=== PATIENT | male | born 1945 | race Hispanic/Latino ===

== ENCOUNTER 2018-08-29 22:16 | Emergency (ER) | payer OTHER ==
[2018-08-30 00:09] LABS: Absolute Monocytes 0.5 K/uL (0.1-1.3); Absolute Neutrophil 6.7 K/uL (1.8-8.0); Basophils % 0.8 % (0-1.3); Hematocrit 37.6 % (39.6-49.0); Lymphocytes % 11.4 % (15.3-44.8); MPV 8.5 fL (7.6-11.3); Monocytes % 5.8 % (3.3-12.3); RBC Red Blood Cell Count 3.78 M/uL (4.33-5.43)
[2018-08-30 00:21] LABS: Protime INR 0.95
[2018-08-30] MEDS ORDERED: FOLIC ACID 5 MG/ML VIAL ONE (00:48)
[2018-08-30] MEDS ORDERED: NA CHLORIDE 0.9% 50 ML IV ONE (00:49)
[2018-08-30 01:22] LABS: ALT/SGPT 27 U/L (12-78); AST/SGOT 14 U/L (15-37); Albumin 3.6 g/dL (3.4-5.0); Alkaline Phosphatase 87 U/L (45-117); BUN Blood Urea Nitrogen 21 mg/dL (7-18); Bicarbonate 23 mmol/L (21-32); Bilirubin Direct 0.1 mg/dL (0-0.2); Bilirubin Total 0.3 mg/dL (0.2-1.0); Glucose Level 171 mg/dL (74-106); Magnesium 1.6 mg/dL (1.8-2.4); NT PRO-BNP 34 pg/mL (<125); Potassium 4.2 mmol/L (3.5-5.1); Protein, Total 7.1 g/dL (6.4-8.2); Sodium Level 136 mmol/L (136-145); Troponin (Emerg Dept Use Only) < 0.02 ng/mL (0.0-0.045)
[2018-08-30 01:31] LABS: Urine Blood NEGATIVE (NEG); Urine Glucose TRACE (NEG); Urine Protein NEGATIVE (NEG); Urine pH 6.5 (5.0-7.0)
[2018-08-30] MEDS ORDERED: MAGNESIUM SULFATE 1 gm IVPB 1 GM/100 ML BAG IV ONE (01:59)
--- NOTE | 2018-08-30 04:21 | EDPHYS ---
Physician Documentation [facility] Name: Roel Tejeda Jr Age: 73 yrs Sex: Male : 1945 Arrival Date: 08/29/2018 Time: 22:32 Bed 13 Private MD: ED Physician Kyle Winters HPI: 08/30 01:59 This 73 yrs old Male presents to ER via EMS with complaints of Probable snw Seizure. 01:59 The patient presents after having a single isolated seizure, that lasted 2 minute(s). snw Character of seizure(s): Loss of consciousness: the patient experienced loss of consciousness, Motor activity: focal activity, of the right arm, Incontinence: incontinent of bladder, Apnea: the patient experienced apnea, Circulation: the patient did not experience evidence of pulse disturbance, Eye movements: are unknown. Seizure onset: at 22:00. Context: the seizure(s) was witnessed, by a significant other, , occurred at home, occurred while the patient was sitting, Contributing factors: recent severe fatigue, +diaphoresis, -postictal period. Seizure Hx: the patient has no previous seizure history. Associated injury: The patient did not suffer any apparent associated injury. EMS care: supplemental oxygen. Current symptoms: Currently, the patient is not experiencing any symptoms, the patient feels back to baseline, no confusion, no dysphasia, no headache, no paralysis, no visual changes. The patient has not experienced similar symptoms in the past. It is unknown whether or not the patient has recently seen a physician. [facility]. Historical: - Allergies: 08/29 22:20 No Known Allergies; cc3 - Home Meds: 22:20 glipizide 5 mg Oral tab 1 tab once daily [Active]; atorvastatin 40 mg oral tab 1 tab cc3 once daily [Active]; sildenafil oral 100 mg PRN oral [Active]; hydrochlorothiazide 25 mg Oral tab once daily [Active]; Benadryl 25 mg oral cap PRN [Active]; tamsulosin 0.4 mg oral cp24 1 cap once daily [Active]; sertraline 100 mg oral tab 1 tab once daily [Active]; cyanocobalamin (vitamin B-12) 100 mcg oral tab [Active]; omeprazole 20 mg Oral cpDR 1 cap once daily [Active]; metformin 1,000 mg Oral tab [Active]; lisinopril 10 mg Oral tab 1 tab once daily [Active]; tramadol 50 mg Oral tab BID [Active]; - PMHx: 22:20 Diabetes - NIDDM; quadruple heart bypass; right knee replacement; back surgery; cc3 bilateral cataract removal; Hypertension; CVA; Myocardial infarction; - Immunization history:: Adult Immunizations up to date. - Social history:: Smoking status: Patient uses tobacco products, denies chronic smoking, but will smoke occasionally. - Ebola Screening: : No symptoms or risks identified at this time. ROS: 08/30 01:58 Constitutional: Negative for fever, chills, and weight loss, Eyes: Negative for injury, snw pain, redness, and discharge, ENT: Negative for injury, pain, and discharge, Neck: Negative for injury, pain, and swelling, Cardiovascular: Negative for chest pain, palpitations, and edema, Respiratory: Negative for shortness of breath, cough, wheezing, and pleuritic chest pain, Abdomen/GI: Negative for abdominal pain, nausea, vomiting, diarrhea, and constipation, Back: Negative for injury and pain, : Negative for injury, bleeding, discharge, and swelling, MS/Extremity: Negative for injury and deformity, Skin: Negative for injury, rash, and discoloration, Psych: Negative for depression, anxiety, suicide ideation, homicidal ideation, and hallucinations. Neuro: Positive for seizure activity. Exam: 00:16 Constitutional: This is a well developed, well nourished patient who is awake, alert, snw and in no acute distress. Head/Face: Normocephalic, atraumatic. Eyes: Pupils equal round and reactive to light, extra-ocular motions intact. Lids and lashes normal. Conjunctiva and sclera are non-icteric and not injected. Cornea within normal limits. Periorbital areas with no swelling, redness, or edema. ENT: Nares patent. No nasal discharge, no septal abnormalities noted. Tympanic membranes are normal and external auditory canals are clear. Oropharynx with no redness, swelling, or masses, exudates, or evidence of obstruction, uvula midline. Mucous membranes moist. Neck: Trachea midline, no thyromegaly or masses palpated, and no cervical lymphadenopathy. Supple, full range of motion without nuchal rigidity, or vertebral point tenderness. No Meningismus. Chest/axilla: Normal chest wall appearance and motion. Nontender with no deformity. No lesions are appreciated. Cardiovascular: Regular rate and rhythm with a normal S1 and S2. No gallops, murmurs, or rubs. Normal PMI, no JVD. No pulse deficits. Respiratory: Lungs have equal breath sounds bilaterally, clear to auscultation and percussion. No rales, rhonchi or wheezes noted. No increased work of breathing, no retractions or nasal flaring. Abdomen/GI: Soft, non-tender, with normal bowel sounds. No distension or tympany. No guarding or rebound. No evidence of tenderness throughout. Back: No spinal tenderness. No costovertebral tenderness. Full range of motion. Skin: Warm, dry with normal turgor. Normal color with no rashes, no lesions, and no evidence of cellulitis. MS/ Extremity: Pulses equal, no cyanosis. Neurovascular intact. Full, normal range of motion. Neuro: Awake and alert, GCS 15, oriented to person, place, time, and situation. Cranial nerves II-XII grossly intact. Motor strength 5/5 in all extremities. Sensory grossly intact. Cerebellar exam normal. Normal gait. Psych: Awake, alert, with orientation to person, place and time. Behavior, mood, and affect are within normal limits. Vital Signs: 08/29 22:20 BP 122 / 79; Pulse 82; Resp 19 S; Temp 98.5(O); Pulse Ox 97% on R/A; Weight 105.69 kg cc3 (R); Height 6 ft. 0 in. (182.88 cm) (R); 23:00 BP 125 / 84; Pulse 84; Resp 17 S; Pulse Ox 98% on R/A; cc3 08/30 00:15 BP 123 / 81; Pulse 85; Resp 17 S; Pulse Ox 98% on R/A; cc3 01:20 BP 126 / 75; Pulse 70; Resp 18 S; Pulse Ox 98% on R/A; cc3 02:30 BP 124 / 84; Pulse 79; Resp 17 S; Pulse Ox 99% on R/A; cc3 02:45 BP 141 / 72; Pulse 77; Resp 16 S; Pulse Ox 98% on R/A; cc3 03:45 BP 133 / 76; Pulse 75; Resp 14 S; Pulse Ox 99% on R/A; cc3 04:30 BP 131 / 80; Pulse 74; Resp 16 S; Pulse Ox 98% on R/A; cc3 05:45 BP 140 / 81; Pulse 69; Resp 16 S; Pulse Ox 97% on R/A; cc3 06:06 BP 136 / 81; Pulse 77; Resp 18 S; Pulse Ox 98% on R/A; cc3 08/29 22:20 Body Mass Index 31.60 (105.69 kg, 182.88 cm) cc3 Keli Coma Score: 08/29 22:20 Eye Response: spontaneous(4). Verbal Response: oriented(5). Motor Response: obeys cc3 commands(6). Total: 15. MDM: 08/30 00:10 Data reviewed: vital signs, nurses notes. Data interpreted: Pulse oximetry: on room air snw is 97 %. Interpretation: normal. Counseling: I had a detailed discussion with the patient and/or guardian regarding: the historical points, exam findings, and any diagnostic results supporting the discharge/admit diagnosis, lab results, radiology results. ED course: sees the MA, Dr. Carroll is pt's [facility] at [facility]. 00:17 Patient medically screened. snw 03:56 Physician consultation: Kyle Winters MD. Transition of care: After a detail discussion snw of the patient's case, care is transferred to Kyle Winters MD. 08/29 23:20 Order name: Basic Metabolic Panel; Complete Time: 01:23 snw 08/29 23:20 Order name: CBC with Diff snw 08/29 23:20 Order name: LFT's; Complete Time: 01:23 snw 08/29 23:20 Order name: Magnesium; Complete Time: 01:23 snw 08/29 23:20 Order name: NT PRO-BNP; Complete Time: 01:23 snw 08/29 23:20 Order name: PT-INR; Complete Time: 00:36 snw 08/29 23:19 Order name: CT Head C Spine snw 08/29 23:20 Order name: Troponin (emerg Dept Use Only); Complete Time: 01:23 snw 08/29 23:20 Order name: XRAY Chest (1 view) snw 08/29 23:20 Order name: EKG; Complete Time: 23:21 snw 08/30 01:14 Order name: Urine Dipstick--Ancillary (enter results); Complete Time: 01:32 mw2 08/30 02:41 Order name: Glucose, Ancillary Testing; Complete Time: 02:51 EDMS 08/29 23:20 Order name: Cardiac monitoring; Complete Time: 23:42 snw 08/29 23:20 Order name: EKG - Nurse/Tech; Complete Time: 23:42 snw 08/29 23:20 Order name: IV Saline Lock; Complete Time: 23:41 snw 08/29 23:20 Order name: Labs collected and sent; Complete Time: 23:41 snw 08/29 23:20 Order name: O2 Per Protocol; Complete Time: 23:41 snw 08/29 23:20 Order name: O2 Sat Monitoring; Complete Time: 23:41 snw Administered Medications: 00:50 Drug: foLIC Acid 1 mg Route: IVPB; Site: right antecubital; cc3 01:20 Follow up: Response: No adverse reaction; IV Status: Completed infusion cc3 02:00 Drug: Magnesium Sulfate 1 grams Route: IVPB; Infused Over: 1 hrs; Site: right cc3 antecubital; 03:10 Follow up: Response: No adverse reaction; IV Status: Completed infusion; IV Intake: cc3 100ml Point of Care Testing: Blood Glucose: 08/29 22:37 Blood Glucose: 149 mg/dL; ed1 Ranges: Critical Glucose Levels:Adult <50 mg/dl or >400 mg/dl <40 mg/dl or >180 mg/dl Disposition: 08/30/18 04:20 Transfer ordered to [facility]. Diagnosis is Epilepsy and recurrent seizures. - Reason for transfer: Higher level of care. - Accepting physician is heather. - Condition is Stable. - Problem is new. - Symptoms have improved. Signatures: Dispatcher [employer] EDME Zully Gerard, RN RN dm5 Nevaeh Villasenor FNP-C FNP-Kyle Adrian MD MD gs Cordel, Charlene cc3 Corrections: (The following items were deleted from the chart) 08/30 09:08 04:20 08/30/2018 04:20 Transfer ordered to [facility]. dm5 Diagnosis is Epilepsy and recurrent seizures. Reason for transfer: Higher level of care. Accepting physician is heather. Condition is Stable. Problem is new. Symptoms have improved. gs
--- NOTE | 2018-08-30 04:21 | ER ---
Nurse's Notes [facility] Name: Roel Tejeda Jr Age: 73 yrs Sex: Male : 1945 Arrival Date: 08/29/2018 Time: 22:32 Bed 13 Private MD: Diagnosis: Epilepsy and recurrent seizures Presentation: 08/29 22:20 Presenting complaint: EMS states: "patient was feeling cold \\T\\ clammy tonight then had a cc3 2-minute seizure, when we arrive at the patient's house the patient is completely awake and alert". said that the patient has been having dizziness, nausea and feeling of tiredness since 10 days and today's worse; as per , after they had dinner tonight the patient just suddenly felt dizzy and for a minute and a half the patient had a blank stare, started seizing and stopped breathing, then after that the patient came back to his consciousness but cannot remember what happened. Transition of care: patient was not received from another setting of care. Onset of symptoms was August 29, 2018. Risk Assessment: Do you want to hurt yourself or someone else? Patient reports no desire to harm self or others. Initial Sepsis Screen: Does the patient meet any 2 criteria? No. Patient's initial sepsis screen is negative. Does the patient have a suspected source of infection? No. Patient's initial sepsis screen is negative. Care prior to arrival: None. 22:20 Method Of Arrival: EMS: [facility] cc3 22:20 Acuity: CANDY 2 cc3 Triage Assessment: 22:20 General: Appears in no apparent distress. comfortable. General: Behavior is calm, cc3 cooperative, appropriate for age. Pain: Denies pain. EENT: No signs and/or symptoms were reported regarding the EENT system. Neuro: Level of Consciousness is awake, alert, obeys commands, Oriented to person, place, time, situation, Appropriate for age. Cardiovascular: Patient's skin is warm and dry. Respiratory: Airway is patent Respiratory effort is even, unlabored, Respiratory pattern is regular, symmetrical. GI: Abdomen is round obese. : No signs and/or symptoms were reported regarding the genitourinary system. Derm: No signs and/or symptoms reported regarding the dermatologic system. Musculoskeletal: Circulation, motion, and sensation intact. Range of motion: intact in all extremities. Historical: - Allergies: 22:20 No Known Allergies; cc3 - Home Meds: 22:20 glipizide 5 mg Oral tab 1 tab once daily [Active]; atorvastatin 40 mg oral tab 1 tab cc3 once daily [Active]; sildenafil oral 100 mg PRN oral [Active]; hydrochlorothiazide 25 mg Oral tab once daily [Active]; Benadryl 25 mg oral cap PRN [Active]; tamsulosin 0.4 mg oral cp24 1 cap once daily [Active]; sertraline 100 mg oral tab 1 tab once daily [Active]; cyanocobalamin (vitamin B-12) 100 mcg oral tab [Active]; omeprazole 20 mg Oral cpDR 1 cap once daily [Active]; metformin 1,000 mg Oral tab [Active]; lisinopril 10 mg Oral tab 1 tab once daily [Active]; tramadol 50 mg Oral tab BID [Active]; - PMHx: 22:20 Diabetes - NIDDM; quadruple heart bypass; right knee replacement; back surgery; cc3 bilateral cataract removal; Hypertension; CVA; Myocardial infarction; - Immunization history:: Adult Immunizations up to date. - Social history:: Smoking status: Patient uses tobacco products, denies chronic smoking, but will smoke occasionally. - Ebola Screening: : No symptoms or risks identified at this time. Screenin:20 Abuse screen: Denies threats or abuse. Denies injuries from another. Nutritional cc3 screening: No deficits noted. Tuberculosis screening: No symptoms or risk factors identified. Fall Risk IV access (20 points). Ambulatory Aid- None/Bed Rest/Nurse Assist (0 pts). Gait- Normal/Bed Rest/Wheelchair (0 pts) Mental Status- Oriented to own ability (0 pts). Assessment: 22:20 General: see triage assessment. cc3 23:18 Reassessment: Patient appears in no apparent distress at this time. Patient and/or cc3 family updated on plan of care and expected duration. Pain level reassessed. Patient is alert, oriented x 3, equal unlabored respirations, skin warm/dry/pink. 08/30 00:25 Reassessment: Patient appears in no apparent distress at this time. Patient and/or cc3 family updated on plan of care and expected duration. Pain level reassessed. Patient is alert, oriented x 3, equal unlabored respirations, skin warm/dry/pink. Patient came back from CT scan department, awaiting result. 01:16 Reassessment: Patient appears in no apparent distress at this time. Patient and/or cc3 family updated on plan of care and expected duration. Pain level reassessed. Patient is alert, oriented x 3, equal unlabored respirations, skin warm/dry/pink. 02:25 Reassessment: Patient appears in no apparent distress at this time. Patient and/or cc3 family updated on plan of care and expected duration. Pain level reassessed. Patient is alert, oriented x 3, equal unlabored respirations, skin warm/dry/pink. 03:09 Reassessment: Patient appears in no apparent distress at this time. Patient and/or cc3 family updated on plan of care and expected duration. Pain level reassessed. Patient is alert, oriented x 3, equal unlabored respirations, skin warm/dry/pink. 04:30 Reassessment: Patient appears in no apparent distress at this time. Patient and/or cc3 family updated on plan of care and expected duration. Pain level reassessed. Patient is alert, oriented x 3, equal unlabored respirations, skin warm/dry/pink. Charge nurse Tiffany said the transfer for the patient will take a while due to lack of EMS, informed the patient's . Transfer form still not given to me. 05:35 Reassessment: Patient appears in no apparent distress at this time. Patient and/or cc3 family updated on plan of care and expected duration. Pain level reassessed. Patient is alert, oriented x 3, equal unlabored respirations, skin warm/dry/pink. Patient's named Nora went out and left her mobile number [phone]. 06:20 Reassessment: Patient appears in no apparent distress at this time. Patient and/or cc3 family updated on plan of care and expected duration. Pain level reassessed. Patient is alert, oriented x 3, equal unlabored respirations, skin warm/dry/pink. Vital Signs: 08/29 22:20 BP 122 / 79; Pulse 82; Resp 19 S; Temp 98.5(O); Pulse Ox 97% on R/A; Weight 105.69 kg cc3 (R); Height 6 ft. 0 in. (182.88 cm) (R); 23:00 BP 125 / 84; Pulse 84; Resp 17 S; Pulse Ox 98% on R/A; cc3 08/30 00:15 BP 123 / 81; Pulse 85; Resp 17 S; Pulse Ox 98% on R/A; cc3 01:20 BP 126 / 75; Pulse 70; Resp 18 S; Pulse Ox 98% on R/A; cc3 02:30 BP 124 / 84; Pulse 79; Resp 17 S; Pulse Ox 99% on R/A; cc3 02:45 BP 141 / 72; Pulse 77; Resp 16 S; Pulse Ox 98% on R/A; cc3 03:45 BP 133 / 76; Pulse 75; Resp 14 S; Pulse Ox 99% on R/A; cc3 04:30 BP 131 / 80; Pulse 74; Resp 16 S; Pulse Ox 98% on R/A; cc3 05:45 BP 140 / 81; Pulse 69; Resp 16 S; Pulse Ox 97% on R/A; cc3 06:06 BP 136 / 81; Pulse 77; Resp 18 S; Pulse Ox 98% on R/A; cc3 08/29 22:20 Body Mass Index 31.60 (105.69 kg, 182.88 cm) cc3 Keli Coma Score: 08/29 22:20 Eye Response: spontaneous(4). Verbal Response: oriented(5). Motor Response: obeys cc3 commands(6). Total: 15. ED Course: 22:20 Arm band placed on right wrist. Patient notified of wait time. cc3 22:20 Patient has correct armband on for positive identification. Placed in gown. Bed in low cc3 position. Call light in reach. Side rails up X2. Adult w/ patient. Seizure precautions initiated. monitor tech on. Pulse ox on. NIBP on. 22:32 Patient arrived in ED. am2 22:32 Lulu Reid is Primary Nurse. cc3 22:32 Maintain EMS IV. Dressing intact. Good blood return noted. Site clean \\T\\ dry. Gauge \\T\\ cc 3 site: gauge 20 right acv. 22:49 Triage completed. cc3 23:49 Nev[facility]C [facility]. snw 23:49 Kyle Winters MD is Attending Physician. snw 23:[address] via stretcher. kw1 03/18 00:03 CT completed. Patient tolerated procedure well. Patient moved back from CT. kw1 00:14 CT Head C Spine In Process Unspecified. EDMS 00:25 XRAY Chest (1 view) In Process Unspecified. EDMS 07:00 Report given to OTILIA Kelly. cc3 07:05 Robin Linares, RN is Primary Nurse. sg 07:40 transfer transportation to receiving facility. sg 07:41 Patient transferred, IV remains in place. intact, No redness/swelling at site. sg Administered Medications: 00:50 Drug: foLIC Acid 1 mg Route: IVPB; Site: right antecubital; cc3 01:20 Follow up: Response: No adverse reaction; IV Status: Completed infusion cc3 02:00 Drug: Magnesium Sulfate 1 grams Route: IVPB; Infused Over: 1 hrs; Site: right cc3 antecubital; 03:10 Follow up: Response: No adverse reaction; IV Status: Completed infusion; IV Intake: cc3 100ml Point of Care Testing: Blood Glucose: 08/29 22:37 Blood Glucose: 149 mg/dL; ed1 Ranges: Intake: 18 03:10 IV: 100ml; Total: 100ml. cc3 Outcome: 04:20 ER care complete, transfer ordered by MD. 07:40 Transferred by ground EMS Note: report called to OTILIA Brand sg 09:08 Patient left the ED. dm5 Signatures: Dispatcher [employer] Zully Quezada RN RN dm5 Robin Linares RN RN sg Nevaeh Villasenor, ASSOCIATE PROFESSOR OF SURGERY-C ASSOCIATE PROFESSOR OF SURGERY-Delia Harmon RN RN ed1 Irena Gaines am2 Kyle Winters MD MD Ximena Pérez kw1 Lulu Reid cc3 Corrections: (The following items were deleted from the chart) 06:04 04:30 Reassessment: Patient appears in no apparent distress at this time. Patient cc3 and/or family updated on plan of care and expected duration. Pain level reassessed. Patient is alert, oriented x 3, equal unlabored respirations, skin warm/dry/pink. cc3 06:07 04:30 Reassessment: Patient appears in no apparent distress at this time. Patient cc3 and/or family updated on plan of care and expected duration. Pain level reassessed. Patient is alert, oriented x 3, equal unlabored respirations, skin warm/dry/pink. Charge nurse Tiffany said the transfer for the patient will take a while due to lack of EMS, informed the patient's . cc3
--- NOTE | 2018-08-30 08:34 | RAD REPORT ---
EXAM DESCRIPTION: Janel Single View08/30/2018 12:23 am CLINICAL HISTORY: Seizure COMPARISON: none FINDINGS: The lungs appear clear of acute infiltrate. The heart is normal size Postsurgical changes involve the chest IMPRESSION: No acute abnormalities displayed
--- NOTE | 2018-08-30 11:46 | RAD REPORT ---
EXAM DESCRIPTION: CT - Head C Spine Mpr Wo Con - 08/30/2018 2:09 am CLINICAL HISTORY: 73 years Male ams/possible seizure COMPARISON: None TECHNIQUE: Images were obtained in axial, sagittal, and coronal planes. This exam was performed according to our departmental dose-optimization program which includes use of Automated Exposure Control, adjustment of the mA and/or kV according to patient size and/or use of i terative reconstruction technique. FINDINGS: CT brain: Ventricular system is age appropriate in size. Mild prominence of the cortical sulci. No abnormal areas of increased or decreased attenuation seen. No extra-axial fluid collection s noted. No evidence for skull fracture. Symmetric aeration of mastoid air cells bilaterally. Unremar kable paranasal sinuses. CT cervical spine: Height of the vertebral bodies is intact. Satisfactory alignment articular facets. Intact odontoid an d predental space. Vertebral soft tissues appear normal. Moderate to marked anterior osteophyte formation C4-5 and C6-7 levels. Marginal spur formation with n eural foraminal narrowing bilaterally C3-4, C4-5, and C6-7 levels. Nuchal calcifications. Intact ring C1. Posterior elements intact all levels. Intact occipital condyles. Marked degenerative spurring ar ticular facets posteriorly C3-4 on left. IMPRESSION: No acute intracranial abnormality. No evidence for hemorrhage, mass lesion, or large acu te infarction. Age-appropriate changes. No acute fracture or subluxation involving the cervical spine. Moderately severe multilevel osteoarth ritic change. Electronically signed by: Mimi Baltazar MD 08/30/2018 12:19 AM CDT Due to temporary technical issues with the PACS/Fluency reporting system, reports are being signed by the in house radiologist as a courtesy to ensure prompt reporting. The interpreting radiologist is f ully responsible for the content of the report.
--- NOTE | 2018-08-30 12:20 | EKG ---
Test Date: 2018-08-29 Test Time: 22:27:42 Enrollment Clerk: ELIZABETH MEASUREMENT RESULTS: Intervals: Rate: 70 NJ: 176 QRSD: 106 QT: 386 QTc: 416 Hutto: P: 22 NJ: 176 QRS: 64 T: 71 INTERPRETIVE STATEMENTS: Normal sinus rhythm Normal ECG Compared to ECG 01/31/2007 07:58:49 Sinus bradycardia no longer present Electronically Signed On 08-30-18 12:19:53 CDT by Xander Reid
== END 2018-08-30 09:08 | disposition short-term general hospital (02) ==
LOC: ER 22:16
DX: G40.802 Other epilepsy, not intractable, without status epilepticus (principal); I10 Essential (primary) hypertension; E11.9 Type 2 diabetes mellitus without complications; Z72.0 Tobacco use; Z86.73 Personal history of transient ischemic attack (TIA), and cerebral infarction without residual deficits; Z95.1 Presence of aortocoronary bypass graft
CPT/HCPCS: 96365; 96367; 93005; 85025; 80048; 36415; 83735; 85610; 82962; 80076; 81003; 84484; 83880; 70450; 72125; 71045; 99285; J3475

== ENCOUNTER 2022-10-24 07:08 | Day surgery (SDC) | payer OTHER ==
[2022-10-22 15:46] LABS: Absolute Lymphocytes (CBC) 1.4 K/uL (0.7-4.9); Hematocrit 42.8 % (39.6-49.0); MCV 101.9 fL (80-100); MPV 7.9 fL (7.6-11.3); RBC Red Blood Cell Count 4.19 M/uL (4.33-5.43)
[2022-10-22 15:49] LABS: Potassium 4.5 mEq/L (3.5-5.1)
[2022-10-24] MEDS ORDERED: NA CHLORIDE 0.9% 1,000 ML ONE ×2 (07:35→10:14)
[2022-10-24] MEDS ORDERED: LIDOCAINE 1% MPF 5 ML VIAL ONE (09:10)
[2022-10-24] MEDS ORDERED: propofoL 200 MG/20 ML VIAL IV ONE ×2 (09:10→10:06)
[2022-10-24] MEDS ORDERED: ATROPINE SULFATE 1 MG/ML INJ ONE (09:28)
[2022-10-24] MEDS ORDERED: GLUCAGON 1 MG/VIAL ONE (10:08)
[2022-10-24 10:41] VITALS: TEMP 97
[2022-10-24 10:42] VITALS: BP 128/66; O2SAT 100
== END 2022-10-24 10:51 | disposition home or self-care (01) ==
LOC: OR 07:08
PROVIDERS: ATTEND Surgery
PROC: 0DBL8ZX Excision of Transverse Colon, Via Natural or Artificial Opening Endoscopic, Diagnostic (ICD-10-PCS; 2022-10-24)
PROC: 0DBN8ZX Excision of Sigmoid Colon, Via Natural or Artificial Opening Endoscopic, Diagnostic (ICD-10-PCS; 2022-10-24)
PROC: 0DBM8ZX Excision of Descending Colon, Via Natural or Artificial Opening Endoscopic, Diagnostic (ICD-10-PCS; 2022-10-24)
PROC: 0DBK8ZX Excision of Ascending Colon, Via Natural or Artificial Opening Endoscopic, Diagnostic (ICD-10-PCS; principal; 2022-10-24 09:15)
DX: K59.00 Constipation, unspecified (principal); K92.1 Melena; N42.9 Disorder of prostate, unspecified; K57.30 Diverticulosis of large intestine without perforation or abscess without bleeding; K64.8 Other hemorrhoids; D12.2 Benign neoplasm of ascending colon; D12.4 Benign neoplasm of descending colon; D12.5 Benign neoplasm of sigmoid colon; D12.3 Benign neoplasm of transverse colon
CPT/HCPCS: 85025; 80048; 36415; 82947; 88305; 45385; J1610; J2704 ×2; J0461; J2001; J7030 ×2

== ENCOUNTER → 2023-11-13 | Day surgery (SDC) | payer OTHER ==
[2023-11-11 14:02] LABS: Absolute Eosinophils 0.1 K/uL (0-0.5); Absolute Lymphocytes (CBC) 1.1 K/uL (0.7-4.9); Absolute Monocytes 0.3 K/uL (0.1-1.3); Absolute Neutrophil 4.6 K/uL (1.8-8.0); Basophils % 0.8 % (0-1.3); Eosinophils % 2.2 % (0-4.4); Hematocrit 37.3 % (39.6-49.0); Hemoglobin 12.9 g/dL (13.6-17.9); Lymphocytes % 17.4 % (15.3-44.8); MCH 35.7 pg (27.0-35.0); MCHC 34.5 g/dL (32.0-36.0); MCV 103.6 fL (80-100); MPV 7.5 fL (7.6-11.3); Monocytes % 4.7 % (3.3-12.3); Neutrophils % 74.9 % (41.7-73.7); Nucleated Red Blood Cells % 0.1 % (0-0); Platelets 274 thou/uL (152-406); Red Cell Distribution Width 14.7 % (12.1-15.2)
[2023-11-11 14:19] LABS: Anion Gap 7.8 mEq/L (5.0-15.0); Potassium 3.8 mEq/L (3.5-5.1)
[~2023-11-13] MED LIST: LIDOCAINE 1% MPF 5 ML VIAL ONE; propofoL 200 MG/20 ML VIAL IV ONE
[2023-11-13] MEDS: NA CHLORIDE 0.9% 1,000 ML ONE (08:30)
[2023-11-13 08:52] VITALS: O2SAT 100
[2023-11-13 11:11] VITALS: BP 150/78; TEMP 97.4
--- NOTE | 2023-11-13 16:57 | EKG ---
Test Date: 2023-11-11 Test Time: 13:43:08 Embedded Processor: JESUS MEASUREMENT RESULTS: Intervals: Rate: 62 DE: 162 QRSD: 96 QT: 408 QTc: 414 Wiggins: P: 46 DE: 162 QRS: 64 T: 85 INTERPRETIVE STATEMENTS: Normal sinus rhythm Normal ECG Compared to ECG 08/29/2018 22:27:42 No significant changes Electronically Signed On 11-13-23 16:50:09 CDT by Collins Bryant
== END ==
LOC: OR 07:55
PROVIDERS: ATTEND Surgery
PROC: 0DBG8ZX Excision of Left Large Intestine, Via Natural or Artificial Opening Endoscopic, Diagnostic (ICD-10-PCS; principal; 2023-11-13 10:15)
DX: Z12.11 Encounter for screening for malignant neoplasm of colon (principal); Z86.010 Personal history of colon polyps; K57.30 Diverticulosis of large intestine without perforation or abscess without bleeding; K64.8 Other hemorrhoids; D12.4 Benign neoplasm of descending colon
CPT/HCPCS: 93005; 85025; 80048; 36415; 82947; 88305; 45380; J2704; J2001; J7030

== ENCOUNTER 2024-01-03 20:07 | Inpatient (IN) | payer OTHER ==
--- NOTE | 2024-01-03 21:17 | RAD REPORT ---
EXAM DESCRIPTION: RAD - Chest Single View - 01/03/2024 9:05 pm CLINICAL HISTORY: weakness COMPARISON: 08/30/2018 FINDINGS: Lines: None. Lungs: No evidence of edema or pneumonia. Pleural: No significant pleural effusions or pneumothorax. Cardiac: The heart size is within normal limits. Mediastinum: Within normal limits. Bones: No acute fractures. Sternotomy. Other: None IMPRESSION: No acute cardiopulmonary disease.
--- NOTE | 2024-01-03 21:18 | RAD REPORT ---
EXAM DESCRIPTION: CT - Head Brain Wo Cont - 01/03/2024 9:11 pm CLINICAL HISTORY: WEAKNESS COMPARISON: No comparisons TECHNIQUE: All CT scans are performed using dose optimization technique as appropriate and may inclu de automated exposure control or mA/KV adjustment according to patient size. FINDINGS: No intracranial hemorrhage, hydrocephalus or extra-axial fluid collection.No areas of brai n edema or evidence of midline shift. The paranasal sinuses and mastoids are clear. The calvarium is intact. IMPRESSION: No acute intracranial abnormality.
[2024-01-03 21:26] LABS: Absolute Basophils 0.1 K/uL (0-0.5); Absolute Lymphocytes (CBC) 0.8 K/uL (0.7-4.9); Absolute Monocytes 1.3 K/uL (0.1-1.3); Absolute Neutrophil 18.2 K/uL (1.8-8.0); Basophils % 0.4 % (0-1.3); Eosinophils % 0.1 % (0-4.4); Hematocrit 37.5 % (39.6-49.0); Hemoglobin 12.6 g/dL (13.6-17.9); Lymphocytes % 4.1 % (15.3-44.8); MCH 34.6 pg (27.0-35.0); MCHC 33.6 g/dL (32.0-36.0); MCV 103.2 fL (80-100); MPV 8.3 fL (7.6-11.3); Monocytes % 6.2 % (3.3-12.3); Neutrophils % 89.2 % (41.7-73.7); Platelets 241 thou/uL (152-406); RBC Red Blood Cell Count 3.64 M/uL (4.33-5.43); Red Cell Distribution Width 14.7 % (12.1-15.2)
[2024-01-03 21:47] LABS: Albumin 3.4 g/dL (3.4-5.0); Albumin/Globulin Ratio 0.9 (1.1-1.8); Anion Gap 9.5 mEq/L (5.0-15.0); Bilirubin Direct 0.4 mg/dL (0-0.2); Bilirubin Indirect, Calculated 0.7 mg/dL (0.2-0.8); Bilirubin Total 1.1 mg/dL (0.2-1.0); Globulin 3.9 g/dL (2.3-3.5); Potassium 3.5 mEq/L (3.5-5.1); Protein, Total 7.3 g/dL (6.4-8.2); Troponin High Sensitivity 7.1 pg/mL (<58.9)
[2024-01-03 21:50] LABS: Magnesium 0.9 mg/dL (1.6-2.4)
[2024-01-03 21:53] LABS: PTT, Activated Partial Thromb 27.3 SECONDS (24.3-36.9); Protime INR 1.26
[2024-01-03 22:00] LABS: Platelet Estimate ADEQ; White Blood Cell Scan OK (OK)
[2024-01-03 22:01] LABS: Blood Morphology Comment NOT SEEN (NOT SEEN)
[2024-01-03] MEDS ORDERED: Magnesium Sulfate 2gm IVPB 2 G/50 ML BAG IV ONE (22:13)
[2024-01-03] MEDS ORDERED: CEFEPIME 2 GM VIAL ONE (22:13)
[2024-01-03] MEDS ORDERED: NA CHLORIDE 0.9% 100 ML ONE (22:13)
[2024-01-03] MEDS ORDERED: NA CHLORIDE 0.9% 1,000 ML ONE (22:14)
--- NOTE | 2024-01-03 22:33 | ER ---
Nurse's Notes [facility] Name: Roel Tejeda Jr Age: 78 yrs Sex: Male : 1945 Arrival Date: 01/03/2024 Time: 20:07 Bed 2 Private MD: Diagnosis: Hypomagnesemia;UTI/ Urinary tract infection, site not specified;Sepsis, unspecified organism Presentation: 01/02 20:29 Chief complaint: Patient states: Pt c/o confusion, loss of balance, low back pain, tl4 urinary frequency, dysuria, and urine has foul odor since last night. Pt states he feels weak all over. Coronavirus screen: At this time, the client does not indicate any symptoms associated with coronavirus-19. Ebola Screen: No symptoms or risks identified at this time. Initial Sepsis Screen: Does the patient meet any 2 criteria? No. Patient's initial sepsis screen is negative. Does the patient have a suspected source of infection? No. Patient's initial sepsis screen is negative. Risk Assessment: Do you want to hurt yourself or someone else? Patient reports no desire to harm self or others. Onset of symptoms was January 02, 2024. 20:29 Method Of Arrival: Wheelchair tl4 20:29 Acuity: CANDY 2 tl4 Triage Assessment: 20:32 General: Appears in no apparent distress. Behavior is cooperative. Pain: Complains of tl4 pain in back. EENT: No signs and/or symptoms were reported regarding the EENT system. Neuro: Level of Consciousness is awake, alert, obeys commands, Oriented to person, place, time, situation, Speech is normal, Facial symmetry appears normal. Cardiovascular: Denies chest pain, palpitations, shortness of breath, syncope, Capillary refill < 3 seconds Patient's skin is warm and dry. Respiratory: Airway is patent Respiratory effort is even, unlabored, Respiratory pattern is regular, symmetrical. GI: No signs and/or symptoms were reported involving the gastrointestinal system. : Reports incontinence, pain with urination, urinary frequency, foul odor. Derm: No signs and/or symptoms reported regarding the dermatologic system. Musculoskeletal: No signs and/or symptoms reported regarding the musculoskeletal system. Historical: - Allergies: 20:31 No Known Allergies; tl4 - PMHx: 20:31 back surgery; bilateral cataract removal; CVA; Diabetes - NIDDM; Hypertension; tl4 Myocardial infarction; quadruple heart bypass; right knee replacement; - PSHx: 20:31 None; tl4 - Immunization history:: Adult Immunizations unknown. - Infectious Disease History:: Denies. - Social history:: Smoking status: Patient reports the use of cigarette tobacco products, cigarillos x 8/day. Assessment: 20:47 Neuro: Reports pt and family report confusion and weakness. Cardiovascular: No deficits jm12 noted. Respiratory: No deficits noted. GI: No deficits noted. : Reports inability to void, pain. Vital Signs: 20:29 BP 112 / 60; Pulse 86; Resp 20; Temp 98.6(TE); Pulse Ox 99% on R/A; Weight 92.99 kg; tl4 Height 6 ft. 0 in. ; Pain 6/10; 22:00 BP 118 / 62; Pulse 79; Resp 12; Temp 98.2; Pulse Ox 100% ; jm12 23:00 BP 124 / 63; Pulse 93; Resp 14; Pulse Ox 98% ; jm12 20:29 Body Mass Index 27.80 (92.99 kg, 182.88 cm) tl4 20:29 Pain Scale: Adult tl4 ED Course: 20:11 Patient arrived in ED. jj6 20:11 Jah Rocha PA is PHCP. cp 20:11 Rio Paredes MD is Attending Physician. cp 20:31 Triage completed. tl4 20:33 Arm band placed on left wrist. tl4 20:54 EKG done, by ED staff. vk 21:07 XRAY Chest (1 view) In Process Unspecified. EDMS 21:12 Inserted saline lock: 20 gauge in right antecubital area, using aseptic technique. kj2 Blood collected. 21:13 CT Head Brain wo Cont In Process Unspecified. EDMS 21:13 Blood Culture Adult (2) Sent. kj2 21:13 Ptt, Activated Sent. kj2 21:13 Lactate w/ 2H reflex if indic. Sent. kj2 21:13 Basic Metabolic Panel Sent. kj2 21:13 CBC with Diff Sent. kj2 22:31 Prince Weathers MD is Hospitalizing Provider. cp 22:40 Urinalysis W/Microscopic Sent. jm12 22:41 limb alert sleeve placed on pt left arm. jm12 23:28 Prince Weathers MD is Hospitalizing Provider. 01/03 01:22 Patient admitted, IV remains in place. jm12 Administered Medications: 01/02 22:00 Drug: Magnesium Sulfate IVPB 2 grams IVPB once over 2 hrs Route: IVPB; Infused Over: 2 jm12 hrs; Site: right antecubital; 22:00 Drug: Cefepime IVPB 2 grams IVPB at 200 ml/hr once over 30 mins; (mix in NS 100 mL) pricila Route: IVPB; Rate: 200 ml/hr; Infused Over: 30 mins; Site: right antecubital; 22:00 Drug: NS 0.9% IV (30 ml/kg) 30 ml/kg IV at bolus once; Sepsis Protocol Route: IV; Rate: jm12 bolus; Site: right antecubital; Outcome: 22:32 Decision to Hospitalize by Provider. cp 23:29 Decision to Hospitalize by Provider. 01/03 01:23 Admitted to Med/surg accompanied by tech, via stretchzahraa han Condition: good Instructed on the need for admit, Demonstrated understanding of 01:23 Patient left the ED. jm12 Signatures: Dispatcher [employer] EDMS Jah Rocha PA PA cp Apurva Dejesus [email or web address] Guillermo Vogel, RN RN [email or web address] Margot Villasenor Krystal, OTILIA RN kj2 Lupis Blount RN RN jm12
--- NOTE | 2024-01-03 22:33 | EDPHYS ---
Physician Documentation [facility] Name: Roel Tejeda Jr Age: 78 yrs Sex: Male : 1945 Arrival Date: 01/03/2024 Time: 20:07 Bed 2 Private MD: ED Physician Rio Paredes HPI: 01/02 20:40 This 78 yrs old Male presents to ER via Wheelchair with complaints of Urinary cp Incontinence, Altered Mental Status, Dizziness, Fever. 20:40 The patient presents with confusion. cp 20:40 Onset: The symptoms/episode began/occurred today, about 1400 while talking to on cp phone she reports patient did not seem to make sense and speech sounded incoherent. 20:40 Possible causes: sepsis, reports urinary symptoms of pain with urination and foul cp smelling urine since yesterday. Historical: - Allergies: 20:31 No Known Allergies; tl4 - PMHx: 20:31 back surgery; bilateral cataract removal; CVA; Diabetes - NIDDM; Hypertension; tl4 Myocardial infarction; quadruple heart bypass; right knee replacement; - PSHx: 20:31 None; tl4 - Immunization history:: Adult Immunizations unknown. - Infectious Disease History:: Denies. - Social history:: Smoking status: Patient reports the use of cigarette tobacco products, cigarillos x 8/day. ROS: 20:45 Eyes: Negative for injury, pain, redness, and discharge, cp 20:45 Constitutional: Positive for chills, fever, Negative for poor PO intake, 20:45 ENT: Negative for drainage from ear(s), ear pain, sore throat, difficulty swallowing, difficulty handling secretions, 20:45 Cardiovascular: Negative for chest pain, edema, 20:45 Respiratory: Negative for cough, shortness of breath, wheezing, 20:45 Abdomen/GI: Negative for abdominal pain, vomiting, diarrhea, constipation, black/tarry stool, rectal bleeding, 20:45 Back: Positive for pain at rest, pain with movement, 20:45 : Positive for burning with urination, foul smelling urine, Negative for hematuria, testicular pain 20:45 Skin: Negative for cellulitis, rash, 20:45 Neuro: Positive for altered mental status, dizziness, tremor, weakness, Negative for headache, syncope, 20:45 All other systems are negative, Exam: 20:57 ECG was reviewed by the Attending Physician. Vital Signs: 20:29 BP 112 / 60; Pulse 86; Resp 20; Temp 98.6(TE); Pulse Ox 99% on R/A; Weight 92.99 kg; tl4 Height 6 ft. 0 in. ; Pain 6/10; 22:00 BP 118 / 62; Pulse 79; Resp 12; Temp 98.2; Pulse Ox 100% ; jm12 23:00 BP 124 / 63; Pulse 93; Resp 14; Pulse Ox 98% ; jm12 20:29 Body Mass Index 27.80 (92.99 kg, 182.88 cm) tl4 20:29 Pain Scale: Adult tl4 MDM: 20:36 Patient medically screened. 01/02 20:35 Order name: Basic Metabolic Panel; Complete Time: 22:07 cp 01/02 22:07 Interpretation: Normal except: NA 133; CL 97; GLUC 163; BUN 24; CRE 1.33; GFR 55. 01/02 20:35 Order name: CBC with Diff; Complete Time: 22:07 01/02 22:08 Interpretation: Normal except: WBC 20.30; RBC 3.64; HGB 12.6; HCT 37.5; MCV 103.2; CAROLYN% cp 89.2; LYM% 4.1; NEUT A 18.2. 01/02 20:35 Order name: LFT's; Complete Time: 22:07 cp 01/02 22:42 Interpretation: Normal except: BILIT 1.1; BILID 0.4; GLOB 3.9; A/G 0.9. 01/02 20:35 Order name: Magnesium; Complete Time: 22:07 cp 01/02 22:42 Interpretation: Abnormal: MG 0.9. cp 01/02 20:35 Order name: PT-INR; Complete Time: 22:07 cp 01/02 22:42 Interpretation: Reviewed. 01/02 20:35 Order name: Troponin HS; Complete Time: 22:07 cp 01/02 22:43 Interpretation: Reviewed. cp 01/02 20:35 Order name: Urinalysis W/Microscopic; Complete Time: 23:06 cp 01/02 23:06 Interpretation: Normal except: [facility] Extremely Turbid; UGLUC 4+ (Over); UBLD 1+; UPH cp 8.0; UPROT 1+; UNIT 2+; UESTR 500; UWBC >50; URBC 5-10; UBACT >50; UWBC Clump Many. 01/02 20:35 Order name: Lactate w/ 2H reflex if indic.; Complete Time: 22:07 01/02 22:42 Interpretation: Abnormal: LAC 3.1. 01/02 20:35 Order name: Ptt, Activated; Complete Time: 22:07 01/02 20:35 Order name: Blood Culture Adult (2) cp 01/02 21:56 Order name: CBC Smear Scan; Complete Time: 22:07 EDMS 01/02 23:06 Order name: Urine Culture EDMS 01/02 23:39 Order name: Basic Metabolic Panel EDMS 01/02 23:39 Order name: Basic Metabolic Panel EDMS 01/02 23:39 Order name: Basic Metabolic Panel EDMS 01/02 23:39 Order name: Basic Metabolic Panel EDMS 01/02 23:39 Order name: CBC with Automated Diff EDMS 01/02 23:39 Order name: CBC with Automated Diff EDMS 01/02 23:39 Order name: CBC with Automated Diff EDMS 01/02 23:39 Order name: CBC with Automated Diff EDMS 01/02 23:43 Order name: Magnesium EDMS 01/02 23:43 Order name: Magnesium EDMS 01/02 23:43 Order name: Magnesium EDMS 01/02 23:43 Order name: Magnesium EDMS 01/02 23:51 Order name: Ghost Lactate-NO COLLECT Timer [facility] 01/02 20:35 Order name: XRAY Chest (1 view); Complete Time: 21:38 01/02 21:38 Interpretation: Report review. 01/02 20:35 Order name: CT Head Brain wo Cont; Complete Time: 21:38 01/02 21:38 Interpretation: Report reviewed. 01/02 22:30 Order name: CT Chest, Abdomen, Pelvis - W/Contrast 01/02 20:35 Order name: EKG; Complete Time: 20:36 01/02 20:35 Order name: Cardiac monitoring; Complete Time: 21:27 01/02 20:35 Order name: EKG - Nurse/Tech; Complete Time: 20:54 01/02 20:35 Order name: IV Saline Lock; Complete Time: 21:13 01/02 20:35 Order name: Labs collected and sent; Complete Time: 21:13 cp 01/02 20:35 Order name: O2 Per Protocol; Complete Time: :54 cp 01/02 20:35 Order name: O2 Sat Monitoring; Complete Time: 21: cp EC:57 Rate is 81 beats/min. Rhythm is regular. IL interval is normal. QRS interval is normal. cp QT interval is normal. Interpreted by me. Reviewed by me. Administered Medications: 22:00 Drug: Magnesium Sulfate IVPB 2 grams IVPB once over 2 hrs Route: IVPB; Infused Over: 2 jm12 hrs; Site: right antecubital; 22:00 Drug: Cefepime IVPB 2 grams IVPB at 200 ml/hr once over 30 mins; (mix in NS 100 mL) jm12 Route: IVPB; Rate: 200 ml/hr; Infused Over: 30 mins; Site: right antecubital; 22:00 Drug: NS 0.9% IV (30 ml/kg) 30 ml/kg IV at bolus once; Sepsis Protocol Route: IV; Rate: jm12 bolus; Site: right antecubital; Disposition: 01/03 02:05 Co-signature as Attending Physician, Rio Paredes MD I reviewed the patient's care rt provided by the Advanced Practice Provider and agree with the diagnosis and treatment plan. Disposition Summary: 01/03/24 23:29 Hospitalization Ordered Notes: Hospitalization Status: Inpatient Admission(01/03/24 23:29) cp Provider: Prince Sarahy(01/03/24 23:29) cp Location: Telemetry/MedSurg (Inpatient)(01/03/24 23:29) cp Condition: Fair(01/03/24 23:29) cp Problem: new(01/03/24 23:29) cp Symptoms: have improved(01/03/24 23:29) cp Bed/Room Type: Standard(01/03/24 23:29) cp Room Assignment: [facility](01/03/24 23:55) cg Diagnosis - Hypomagnesemia(01/03/24 23:29) cp - UTI/ Urinary tract infection, site not specified cp - Sepsis, unspecified organism(01/03/24 23:29) cp Forms: - Medication Reconciliation Form cp - SBAR form cp - Leadership Thank You Letter cp Signatures: Dispatcher [employer] EDMS Jah Rocha PA PA cp Luna Jose, RN RN cg Rio Paredes MD MD rt Guillermo Vogel RN RN tl4 Lupis Blount, RN RN jm12 Corrections: (The following items were deleted from the chart) 01/02 20:36 20:36 BASIC METABOLIC PANEL+C.LAB.BRZ ordered. EDMS EDMS 20:36 20:36 CBC+H.LAB.BRZ ordered. EDMS EDMS 20:36 20:36 HEPATIC FUNCTION+C.LAB.BRZ ordered. EDMS EDMS 20:36 20:36 MAGNESIUM+C.LAB.BRZ ordered. EDMS EDMS 20:36 20:36 PROTIME (+INR)+COAG.LAB.BRZ ordered. EDMS EDMS 20:36 20:36 Troponin High Sensitivity+C.LAB.BRZ ordered. EDMS EDMS 20:36 20:36 Urinalysis W/Microscopic+U.LAB.BRZ ordered. EDMS EDMS 20:36 20:36 LACTATE+C.LAB.BRZ ordered. EDMS EDMS 20:36 20:36 PTT, ACTIVATED+COAG.LAB.BRZ ordered. EDMS EDMS 20:36 20:36 BLOOD CULTURE*+BA.LAB.BRZ ordered. EDMS EDMS 22:44 22:32 Inpatient Admission cp cp 22:44 22:32 Prince Sarahy cp cp 22:44 22:32 Telemetry/MedSurg (Inpatient) cp cp 22:44 22:32 Serious cp cp 22:44 22:32 new cp cp 22:44 22:32 have improved cp cp 22:44 22:32 Standard cp cp 22:44 22:32 cp cp 22:44 22:32 Hypomagnesemia cp cp 22:44 22:41 Sepsis, unspecified organism cp cp 23:55 23:29 cp cg
[2024-01-03 22:53] LABS: Specific Gravity 1.025 (1.005-1.030); Sqamous Epithelial <5 /HPF (None Seen); Urine Bacteria >50 /HPF (<20); Urine Bilirubin NEGATIVE (Negative); Urine Blood 1+ (Negative); Urine Clarity Extremely Turbid (Clear); Urine Color Light-Orange (Yellow); Urine Culture Reflex Order REFLEXED; Urine Glucose 4+ (Over) (Negative); Urine Ketones NEGATIVE (Negative); Urine Micro Reflex YN NO BILL MICROSCOPIC; Urine Mucus Slight /HPF (None Seen); Urine Nitrite 2+ (Negative); Urine Protein 1+ (Negative); Urine Urobilinogen Normal (Normal); Urine WBC >50 /HPF (<5); Urine WBC Clump Many /HPF (None Seen)
--- NOTE | 2024-01-03 23:41 | P.HP ---
Certification for Inpatient Patient admitted to: Inpatient With expected LOS: >2 Midnights Practitioner: I am a practitioner with admitting privileges, knowledge of patient current condition, hospital course, and medical plan of care. Services: Services provided to patient in accordance with Admission requirements found in Title 42 Section 412.3 of the Code of Federal Regulations Patient History Date of Service: 01/03/24 Reason for admission: SEPSIS History of Present Illness: Patient is a 78 old male with a past medical history of obesity. He is presenting to the ER complaining of 3-day history of dysuria and chills. Patient has a unremarkable urine analysis with positive nitrite. WBC is 20 creatinine 1.3. He is being admitted with a working diagnosis of sepsis secondary to UTI. Allergies No Known Allergies Allergy (Verified 11/13/23 08:44) Home Medications: Aspirin [Low Dose Aspirin EC] 81 mg PO DAILY 10/22/22 Metoprolol Tartrate 25 mg PO BID 10/22/22 Atorvastatin Calcium [Lipitor] 1 tab PO DAILY 10/24/22 Cinnamon Bark [Cinnamon] 2 cap PO DAILY 10/24/22 Cyanocobalamin [Vitamin B-12*] 1 tab PO DAILY 10/24/22 Omeprazole 2 tab PO DAILY 10/24/22 Pyridoxine [Vitamin B-6*] 1 tab PO DAILY 10/24/22 Sertraline [Zoloft*] 1 tab PO DAILY 10/24/22 Tamsulosin [Flomax*] 1 cap PO DAILY 10/24/22 Trazodone HCl 1 tab PO BID 10/24/22 hydroCHLOROthiazide [Hydrochlorothiazide] 1 tab PO DAILY 10/24/22 Arginine/B12/Folic Acid/B6 [l-Arginine Men's Health Tab] 1,000 mg PO DAILY 11/11/23 Diclofenac Sodium [Voltaren Arthritis Pain] 1 yolanda TOP PRN PRN 11/11/23 Folic Acid 1 mg PO DAILY 11/11/23 Glimepiride 4 mg PO BID 11/11/23 Lidocaine 4% Patch [Lidoderm 5% Patch] 1 patch TD DAILY 11/11/23 Magnesium Oxide [Mag 0X Tab] 400 mg PO DAILY 11/11/23 Metformin HCl 1,000 mg PO BID 11/11/23 Physical Examination - Physical Exam General: Obese HEENT: Atraumatic, Normocephalic Neck: Supple Respiratory: Clear to auscultation bilaterally, Normal air movement Cardiovascular: No edema, Normal pulses, Regular rate/rhythm, Normal S1 S2 Musculoskeletal: No clubbing, No swelling, No contractures, No erythema, No tenderness Neurological: Normal speech, Sensation intact - Studies Laboratory Data (last 24 hrs) 01/03/24 01/03/24 01/03/24 21:00 21:00 21:00 WBC 20.30 H Hgb 12.6 L Hct 37.5 L Plt Count 241 PT 14.0 H INR 1.26 APTT 27.3 Sodium 133 L Potassium 3.5 BUN 24 H Creatinine 1.33 H Glucose 163 H Magnesium 0.9 L* Total Bilirubin 1.1 H AST 15 ALT 26 Alkaline Phosphatase 59 Assessment and Plan - Problems (Diagnosis) (1) Sepsis Current Visit: Yes Status: Acute (2) UTI (urinary tract infection) Current Visit: Yes Status: Acute (3) BASILIA (acute kidney injury) Current Visit: Yes Status: Acute - Plan Assessment This is a 78-year-old who is being admitted for sepsis secondary to UTI after presented with dysuria. Patient mental status is at baseline. He is hemodynamically stable. He is receiving volume repletion as well after his initial labs revealed a lactic acid of 3.1 and creatinine 1.33. Severe sepsis UTI Lactic acidosis BASILIA Hypomagnesemia. Initial magnesium 0.9 Obesity Plan: Admit inpatient telemetry Volume repletion with normal saline Will continue patient on ceftriaxone Follow-up blood and urine cultures CT abdomen pelvis ordered by ER for back pain. Please follow results Will replete and repeat magnesium Home when medically cleared Resume home medications upon reconciliation - Advance Directives Does patient have a Living Will: No Does patient have a Durable POA for Healthcare: No
[2024-01-04] MEDS: NA CHLORIDE 0.9% 1,000 ML IV SCH (01:53)
[2024-01-04] MEDS: CEFTRIAXONE 1,000 MG in NA CHLORIDE 0.9% 50 ML IVPB SCH (01:53)
[2024-01-04 06:24] LABS: Absolute Lymphocytes (CBC) 0.6 K/uL (0.7-4.9); Absolute Monocytes 1.1 K/uL (0.1-1.3); Absolute Neutrophil 15.4 K/uL (1.8-8.0); Basophils % 0.2 % (0-1.3); Hematocrit 32.7 % (39.6-49.0); Lymphocytes % 3.4 % (15.3-44.8); MCHC 33.8 g/dL (32.0-36.0); MCV 103.5 fL (80-100); MPV 7.9 fL (7.6-11.3); Monocytes % 6.2 % (3.3-12.3); Neutrophils % 90.2 % (41.7-73.7); Platelets 183 thou/uL (152-406); RBC Red Blood Cell Count 3.16 M/uL (4.33-5.43); Red Cell Distribution Width 14.4 % (12.1-15.2)
[2024-01-04 06:49] LABS: Anion Gap 9.5 mEq/L (5.0-15.0); Magnesium 1.4 mg/dL (1.6-2.4); Potassium 3.5 mEq/L (3.5-5.1)
--- NOTE | 2024-01-04 11:13 | P.PN ---
Subjective Date of Service: 01/04/24 Chief Complaint: SEPSIS Pt is resting comfortably in bed. He was sleeping when I saw him. He is getting iv rocephin for UTI. No other complaints. Review of Systems General: Unremarkable Eyes: Unremarkable ENT: Unremarkable Respiratory: Unremarkable Cardiovascular: Unremarkable Gastrointestinal: Unremarkable Genitourinary: Unremarkable Musculoskeletal: Unremarkable Integumentary: Unremarkable Neurological: Unremarkable Lymphatics: Unremarkable Physical Examination - Vital Signs Temperature: 98.3 F Blood Pressure: 117/67 Pulse: 84 Respirations: 18 Pulse Ox (%): 96 - Physical Exam General: Alert, In no apparent distress, Oriented x3 HEENT: Atraumatic, Normocephalic, PERRLA Neck: Supple, 2+ carotid pulse no bruit, JVD not distended Respiratory: Clear to auscultation bilaterally, Normal air movement Cardiovascular: No edema, Normal pulses, Regular rate/rhythm, Normal S1 S2 Capillary refill: <2 Seconds Gastrointestinal: Normal bowel sounds, Soft and benign, Non-distended Musculoskeletal: No clubbing, No swelling, No contractures Integumentary: No rashes, No breakdown, No significant lesion Neurological: Normal gait, Normal speech, Normal strength at 5/5 x4 extr, Normal tone Lymphatics: No axilla or inguinal lymphadenopathy - Studies Laboratory Data (last 24 hrs) 01/03/24 01/03/24 01/03/24 21:00 21:00 21:00 WBC 20.30 H Hgb 12.6 L Hct 37.5 L Plt Count 241 PT 14.0 H INR 1.26 APTT 27.3 Sodium 133 L Potassium 3.5 BUN 24 H Creatinine 1.33 H Glucose 163 H Magnesium 0.9 L* Total Bilirubin 1.1 H AST 15 ALT 26 Alkaline Phosphatase 59 Assessment And Plan - Plan Severe sepsis 2/2 UTI: will continue rocephin and f/u urine cx. Lactic acidosis: Lactate 3.1 -> 2.1. Will continue IVF and trend lactate. BASILIA: cr is BUN / Cr (20/0.96). Will continue ivf, avoid nephrotoxin and monitor renal function. Hypomagnesemia. Initial magnesium 0.9. Will replete and monitor. Obesity: Pt was advised to lose weight. DVT ppx: SCD Dispo: Pending hospital course.
--- NOTE | 2024-01-04 13:10 | RAD REPORT ---
EXAM DESCRIPTION: CT - Chest Abdomen Pelvis W Cont - 01/04/2024 7:31 am CLINICAL HISTORY: 78 years, Male, back pain COMPARISON: No TECHNIQUE: Contrast-enhanced images of the chest, abdomen and pelvis were performed from the lung ap ices to the ischial tuberosities after the administration of IV contrast. In addition multiplanar reformats in the coronal and sagittal plane were obtained and reviewed. An individualized dose optimization technique, Automated Exposure Control, was utilized for the perfo rmed procedure. FINDINGS: Some of the images are compromised by breathing motion artifact limiting diagnostic value. CHEST: Lower neck: Visualized thyroid gland and soft tissues are normal. No adenopathy. Lungs: The lung parenchyma demonstrate to be clear. Minimal compressive atelectatic changes posterior CP angles and/or related to motion artifact No evidence of airspace or interstitial process. No sign ificant pulmonary nodules and/or masses identified. No focal areas of consolidation. Airways: The trachea mainstem bronchus demonstrate to be unremarkable. Pleural: There are no pleural effusion. No evidence for pneumothorax. Hemidiaphragms are normally pos itioned. Mediastinum and lymph nodes: Subclinical prevascular lymph nodes on image 28. No significant mediasti nal and/or hilar lymphadenopathy. The axillary regions demonstrate to be clear. Heart: Borderline enlarged. No pericardial thickening or effusion. Coronary: Calcified coronary arteries with pericardial clips corresponding to most likely CABG. Aorta: There is mild intimal aortic arch calcification. No evidence for aneurysm. Pulmonary arteries: The central pulmonary arteries demonstrate to be within normal limits. No evidenc e for significant central filling defect to suggest pulmonary embolus. Osseous structures and chest wall: There is mild anterior spondylosis within the mid/lower thoracic s pine. ABDOMEN AND PELVIS: Liver: The liver demonstrated presence of decreased attenuation corresponding to mild fatty infiltration. Gallbladder: Surgical clips within the gallbladder fossa corresponding to previous cholecystectomy. N o significant biliary duct dilatation. Adrenal glands: The adrenal glands demonstrate to be normal. Pancreas: The pancreas demonstrate to be normal. Spleen: The spleen demonstrate to be within normal limits. Kidneys: The kidneys demonstrate normal uptake of contrast media. There is no evidence for nephroli thiasis and/or hydronephrosis. GI: Grossly the unopacified stomach, small bowel and large bowel demonstrate to be within normal limi ts. No evidence for bowel dilatation and/or free air. The appendix was not visualized. The left-sided colon demonstrate to be decompressed with no gross abnormalities. : The urinary bladder demonstrate suboptimal distention. There is diffuse circumferential wall thic kening with a wall enhancement especially along the dome perhaps suggesting the possibility of cystit is. Genitalia: The prostate gland demonstrate to be prominent perhaps related to BPH.. Abdominal aorta: The aorta demonstrated presence of minimal atherosclerotic disease extending into th e aortic bifurcation and iliac arteries. There is a dilatation of the infrarenal abdominal aorta vincent uring 3.0 x 2.7 cm on image 129. Retroperitoneum: There is no retroperitoneal lymphadenopathy. There is no evidence for ascites and/or abnormal fluid collections. Bones: There is mild bony osteopenia of the lumbar spine. There is posterior transpedicular fusion at L3-L5 with metallic intervertebral disc cage fixation at L3-L5. There is fusion of L5/S1 with residu al lucinda hole's at the S1. Soft tissues: The soft tissues demonstrate to be unremarkable. IMPRESSION: Diffuse circumferential wall thickening with a wall enhancement especially along the dom e perhaps suggesting the possibility of cystitis. Prominent prostate gland perhaps related to BPH. Mild fatty infiltration of the liver. Status post cholecystectomy. Abdominal aortic aneurysm measuring 3 cm infrarenal. Recommend follow-up every 3 years. Reference: J Am Lesley Radiol 2013;10:789-794. Postsurgical changes of the lower lumbar spine as described above. Electronically signed by: Tremayne Ramirez MD 01/04/2024 12:09 AM CDT RP Due to temporary technical issues with the PACS/Fluency reporting system, reports are being signed by the in house radiologist without review as a courtesy to ensure prompt reporting. The interpreting r adiologist is fully responsible for the content of the report.
--- NOTE | 2024-01-04 16:30 | EKG ---
Test Date: 2024-01-03 Test Time: 20:50:56 Land Clearer: KLEVER MEASUREMENT RESULTS: Intervals: Rate: 81 WY: 156 QRSD: 96 QT: 358 QTc: 415 [place]: P: 47 WY: 156 QRS: 28 T: 77 INTERPRETIVE STATEMENTS: Normal sinus rhythm Septal infarct, age undetermined Abnormal ECG Compared to ECG 11/11/2023 13:43:08 Myocardial infarct finding now present Electronically Signed On 01-04-24 16:28:29 CDT by Collins Bryant
[2024-01-05] MEDS: TRAZODONE 50 MG TABLET PO SCH ×2 (00:29→19:56)
[2024-01-05 05:53] LABS: Absolute Eosinophils 0.1 K/uL (0-0.5); Absolute Lymphocytes (CBC) 0.9 K/uL (0.7-4.9); Absolute Monocytes 0.9 K/uL (0.1-1.3); Absolute Neutrophil 12.2 K/uL (1.8-8.0); Basophils % 0.2 % (0-1.3); Hemoglobin 10.5 g/dL (13.6-17.9); Lymphocytes % 6.6 % (15.3-44.8); MCH 35.2 pg (27.0-35.0); MCHC 33.9 g/dL (32.0-36.0); MCV 103.8 fL (80-100); MPV 8.1 fL (7.6-11.3); Monocytes % 6.3 % (3.3-12.3); Neutrophils % 85.9 % (41.7-73.7); Platelets 162 thou/uL (152-406); RBC Red Blood Cell Count 2.98 M/uL (4.33-5.43); Red Cell Distribution Width 14.5 % (12.1-15.2)
[2024-01-05 06:01] LABS: Anion Gap 8.7 mEq/L (5.0-15.0); Magnesium 1.8 mg/dL (1.6-2.4); Potassium 3.7 mEq/L (3.5-5.1)
[2024-01-05 08:47] LABS: Blood Morphology Comment NOT SEEN (NOT SEEN); Platelet Estimate ADEQ; White Blood Cell Scan OK (OK)
--- NOTE | 2024-01-05 10:24 | P.DS ---
Admission Date: 01/03/24 Discharge Date: 01/05/24 Disposition: ROUTINE DISCHARGE Discharge Condition: GOOD Reason for Admission: SEPSIS Brief History of Present Illness: Patient is a 78 old male with a past medical history of obesity. He is presenting to the ER complaining of 3-day history of dysuria and chills. Patient has a unremarkable urine analysis with positive nitrite. WBC is 20 creatinine 1.3. He is being admitted with a working diagnosis of sepsis secondary to UTI. - Physical Exam General: Alert, In no apparent distress, Oriented x3 HEENT: Atraumatic, Normocephalic, PERRLA Neck: Supple, 2+ carotid pulse no bruit, JVD not distended Respiratory: Clear to auscultation bilaterally, Normal air movement Cardiovascular: No edema, Normal pulses, Regular rate/rhythm, Normal S1 S2 Capillary refill: <2 Seconds Gastrointestinal: Normal bowel sounds, Soft and benign, Non-distended Musculoskeletal: No clubbing, No swelling, No contractures Integumentary: No rashes, No breakdown, No significant lesion Neurological: Normal gait, Normal speech, Normal strength at 5/5 x4 extr, Normal tone Lymphatics: No axilla or inguinal lymphadenopathy Hospital Course: 78 old male with a past medical history of obesity. He is presenting to the ER complaining of 3-day history of dysuria and chills. Patient has a unremarkable urine analysis with positive nitrite. WBC is 20 creatinine 1.3. He is being admitted with a working diagnosis of sepsis secondary to UTI. Treated with IV antibiotics, will discharge home with p.o. antibiotics, patient need to follow-up with PCP in 1 week Assessment sepsis secondary to UTI discharged home on p.o. antibiotic UA 4+ gram-negative carmita Continue home medicines as previously prescribed GOAL: Clear understanding of disease process INSTRUCTIONS: Physician Discharge Instructions: -Follow-up with PCP in 1 to 2 weeks -Please call Dr. Pichardo at [phone] if any questions regarding hospital stay -Please call nursing station at [phone] if any nursing or medication questions -Return to the emergency room if symptoms worsen Diet: ADA, low sodium Activity: Fall precautions Vital Signs/Physical Exam: Temp Pulse Resp BP Pulse Ox 97.1 F 61 16 118/62 95 01/05/24 07:00 01/05/24 07:00 01/05/24 07:00 01/05/24 07:00 01/05/24 07:00 Laboratory Data at Discharge: WBC 14.20 thou/uL (4.3-10.9) H 01/05/24 05:27 Hgb 10.5 g/dL (13.6-17.9) L 01/05/24 05:27 Hct 31.0 % (39.6-49.0) L 01/05/24 05:27 Plt Count 162 thou/uL (152-406) 01/05/24 05:27 PT 14.0 SECONDS (9.4-12.5) H 01/03/24 21:00 INR 1.26 01/03/24 21:00 APTT 27.3 SECONDS (24.3-36.9) 01/03/24 21:00 Sodium 138 mEq/L (136-145) 01/05/24 05:27 Potassium 3.7 mEq/L (3.5-5.1) 01/05/24 05:27 BUN 18 mg/dL (7-18) 01/05/24 05:27 Creatinine 0.77 mg/dL (0.70-1.30) 01/05/24 05:27 Glucose 105 mg/dL (74-106) 01/05/24 05:27 Magnesium 1.8 mg/dL (1.6-2.4) 01/05/24 05:27 Total Bilirubin 1.1 mg/dL (0.2-1.0) H 01/03/24 21:00 AST 15 U/L (15-37) 01/03/24 21:00 ALT 26 U/L (16-61) 01/03/24 21:00 Alkaline Phosphatase 59 U/L (45-117) 01/03/24 21:00 Home Medications: Aspirin [Low Dose Aspirin EC] 81 mg PO DAILY 10/22/22 Metoprolol Tartrate 12.5 mg PO BID 10/22/22 Atorvastatin Calcium [Lipitor] 1 tab PO DAILY 10/24/22 Cinnamon Bark [Cinnamon] 5 cap PO DAILY 10/24/22 Cyanocobalamin [Vitamin B-12*] 1 tab PO DAILY 10/24/22 Omeprazole 2 tab PO DAILY 10/24/22 Pyridoxine [Vitamin B-6*] 2 tab PO DAILY 10/24/22 Sertraline [Zoloft*] 1 tab PO DAILY 10/24/22 Tamsulosin [Flomax*] 2 cap PO DAILY 10/24/22 Trazodone HCl 1 tab PO BEDTIME 10/24/22 hydroCHLOROthiazide [Hydrochlorothiazide] 1 tab PO DAILY 10/24/22 Arginine/B12/Folic Acid/B6 [l-Arginine Men's Health Tab] 1,000 mg PO DAILY 11/11/23 Diclofenac Sodium [Voltaren Arthritis Pain] 1 yolanda TOP PRN PRN 11/11/23 Folic Acid 1 mg PO DAILY 11/11/23 Lidocaine 4% Patch [Lidoderm 5% Patch] 1 patch TD DAILY 11/11/23 Metformin HCl 1,000 mg PO BID 11/11/23 Clopidogrel Bisulfate [Plavix] 1 tab PO DAILY 01/05/24 Divalproex ER [Depakote *ER] 1 tab PO BEDTIME 01/05/24 Empagliflozin [Jardiance] 12.5 mg PO DAILY 01/05/24 Ferrous Sulfate 325 mg PO DAILY 01/05/24 Lisinopril [Zestril] 2.5 mg PO DAILY 01/05/24 Magnesium Glycinate 100 mg PO DAILY 01/05/24 Oxybutynin Chloride [Oxybutynin Chloride ER] 5 mg PO BID 01/05/24 glipiZIDE [Glipizide] 5 mg PO BID 01/05/24 Diet: Low sodium Activity: Fall precautions Followup: Fatoumata Parsons MD [Primary Care Provider] - Time spent managing pt's care (in minutes): 55
[2024-01-05] MEDS: INSULIN REGULAR (HUMAN) 100 UNIT/ML SQ SCH (16:30)
--- NOTE | 2024-01-05 17:03 | CON ---
History Of Present Illness: This is a 78-year-old male with a significant past medical history of ob esity, coming to the emergency room with a complaint of dysuria and chills. The patient has a signif icant past medical history of benign prostatic hypertrophy, diabetes mellitus, quadruple bypass. Social History: Tobacco positive. Alcohol negative. Family History: Noncontributory. Medications: Rocephin. See MAR for other medications. Allergies: NO KNOWN DRUG ALLERGIES. Review of Systems: A 10-point review was performed. Physical Examination: General: This is a 78-year-old male, lying in bed, not in any acute cardiopulmonary distress. Vital Signs: Temperature 97, pulse 61, respirations 16, blood pressure 118/72. HEENT: Unremarkable. Neck: Supple. Lungs: Basal crackles. Heart: S1, S2. Regular. Abdomen: Soft, nontender. Bowel sounds present. Extremities: No edema. Laboratory Data: Shows WBC 14.2, hemoglobin 10.5, platelets 162. Chemistry shows BUN 18, creatinine 0.7. Microbiology Data: Shows blood cultures negative. Urine cultures are growing 4+ gram-negative rods. Assessment And Plan: A 78-year-old male coming in with urinary tract infection, currently on Rocephi n. Urine cultures are growing gram-negative rods. Blood cultures are negative for [address] shows diffuse circumferential wall thickening of enhancement of bladder suggesting cystitis. Benign prostatic hypertrophy also noted. A 78-year-old male with benign prostatic hypertrophy, coming in with cystitis. We will recommend to continue antibiotic for 5-7 days. Consider getting a Urology evaluation for benign prostatic hypertr ophy. Continue supportive care. Can be switched to oral antibiotic once organism has been identifie d. We will follow the patient closely. Thank you, Dr. Pichardo, for consult. NF/MODL Voice ID: [id number] Report ID: [id number]
--- NOTE | 2024-01-05 19:54 | P.PN ---
Date of Service: 01/05/24 Subjective moderate generalized weakness Review of Systems negative unless listed in HPI Physical Examination - Vital Signs reviewed - Physical Exam General: Alert, In no apparent distress, Oriented x3 HEENT: Atraumatic, Normocephalic, PERRLA Neck: Supple, 2+ carotid pulse no bruit, JVD not distended Respiratory: Clear to auscultation bilaterally, unlabored Cardiovascular: No edema, Normal pulses, Regular rate/rhythm, Normal S1 S2 Capillary refill: <2 Seconds Gastrointestinal: Normal bowel sounds, Soft and benign, Non-distended Musculoskeletal: No clubbing, No swelling, generalized weakness Integumentary: No rashes, No breakdown, No significant lesion Neurological: Normal gait, Normal speech, Normal strength at 5/5 x4 extr, Normal tone Lymphatics: No axilla or inguinal lymphadenopathy Assessment And Plan - Plan Severe sepsis 2/2 UTI: will continue rocephin and f/u urine cx. Blood culture no growth Urine culture 4+ gram-negative carmita, discharged home on Lactic acidosis: Lactate 3.1 -> 2.1. Will continue IVF and trend lactate. Generalized weakness, PT eval, requires assistance with ADL prior to admission, independent with ADLs with use of a cane as needed when ambulating. BASILIA: cr is BUN / Cr (20/0.96). Will continue ivf, avoid nephrotoxin and monitor renal function. Hypomagnesemia. Initial magnesium 0.9. Will replete and monitor. Macrocytic anemia Trend H&H Obesity: Pt was advised to lose weight. DVT ppx: SCD Dispo: Pending hospital course.
[2024-01-06 06:24] LABS: Absolute Basophils 0.1 K/uL (0-0.5); Absolute Eosinophils 0.2 K/uL (0-0.5); Absolute Lymphocytes (CBC) 0.5 K/uL (0.7-4.9); Absolute Monocytes 0.4 K/uL (0.1-1.3); Absolute Neutrophil 5.2 K/uL (1.8-8.0); Basophils % 0.8 % (0-1.3); Eosinophils % 3.9 % (0-4.4); Hematocrit 30.7 % (39.6-49.0); Hemoglobin 10.8 g/dL (13.6-17.9); Lymphocytes % 8.1 % (15.3-44.8); MCHC 35.3 g/dL (32.0-36.0); MCV 102.1 fL (80-100); Neutrophils % 81.2 % (41.7-73.7); Nucleated Red Blood Cells % 0.1 % (0-0); Platelets 198 thou/uL (152-406); RBC Red Blood Cell Count 3.01 M/uL (4.33-5.43); Red Cell Distribution Width 14.3 % (12.1-15.2)
[2024-01-06 06:37] LABS: Anion Gap 8.9 mEq/L (5.0-15.0); Magnesium 1.8 mg/dL (1.6-2.4); Potassium 3.9 mEq/L (3.5-5.1)
[2024-01-06] MEDS: CIPROFLOXACIN HCL 500 MG TAB PO SCH (11:57)
[2024-01-07 15:00] VITALS: BP 136/60; TEMP 98.3; O2SAT 98; BMI 27.5
== END 2024-01-06 14:07 | disposition home or self-care (01) | DRG 872 ==
LOC: ER 20:07 → ERHOLD 23:33 → 4TH 01-04 00:51
PROVIDERS: ADMIT Internal Medicine; ATTEND Hospitalist
DX: A41.9 Sepsis, unspecified organism (principal); N39.0 Urinary tract infection, site not specified; N17.9 Acute kidney failure, unspecified; E87.20 Acidosis, unspecified; E11.9 Type 2 diabetes mellitus without complications; I10 Essential (primary) hypertension; E83.42 Hypomagnesemia; E66.9 Obesity, unspecified; D50.9 Iron deficiency anemia, unspecified; N40.0 Benign prostatic hyperplasia without lower urinary tract symptoms; I25.2 Old myocardial infarction; F17.210 Nicotine dependence, cigarettes, uncomplicated; R65.20 Severe sepsis without septic shock; Z95.1 Presence of aortocoronary bypass graft; Z68.27 Body mass index [BMI] 27.0-27.9, adult; Z79.82 Long term (current) use of aspirin; Z79.84 Long term (current) use of oral hypoglycemic drugs; Z86.73 Personal history of transient ischemic attack (TIA), and cerebral infarction without residual deficits; Z96.651 Presence of right artificial knee joint; Z79.899 Other long term (current) drug therapy
CPT/HCPCS: 36415; 70450; 71045; 71260; 74177; 80048; 80076; 81001; 82947; 83605; 83735; 84484; 85025; 85610; 85730; 87040; 87077; 87086; 87088; 87186; 93005; 96374; 96375; 97161; 99285; J0692; J0696; J3475; J7030; Q9967